=== PATIENT | female | born 1990 | race Two or more races ===

== ENCOUNTER 2020-04-27 14:39 | Emergency (ER) | payer OTHER ==
[~2020-04-27] VITALS: Ht 149.9 cm; Wt 95.3 kg
[2020-04-27 16:50] LABS: Urine Bacteria NONE SEEN /hpf (None Seen); Urine Blood Negative /uL (Negative); Urine Mucus FEW (None Seen); Urine Specific Gravity 1.019 (1.001-1.035); Urine WBC 56 /hpf (0 - 5)
[2020-04-27] MEDS ORDERED: ACETAMINOPHEN 500 MG TAB PO ONE (17:15)
[2020-04-27 18:05] VITALS: BP 113/92
== END 2020-04-27 18:07 | disposition home or self-care (01) ==
LOC: ER 14:45
DX: R51.9 Headache, unspecified (principal); N39.0 Urinary tract infection, site not specified
CPT/HCPCS: 70450; 81001; 81025